=== PATIENT | female | born 2000 | race Two or more races ===

== ENCOUNTER 2024-11-04 10:38 | Outpatient (AMB) | payer OTHER, SELFPAY ==
--- NOTE | 2024-11-04 10:45 | A.OFFVIS_ITS ---
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 She is accompanied by her , Darin. The couple relocated from [place] in 07/28/2024 to [place]. He has a job here. She graduated with a PhD and [employer]. The patient is originally from [place], and her family resides there. The patient says she has a chronic history of anxiety with depression. She was briefly hospitalized for this in 2021 or 2022. She was not on medications prior to hospitalization. She was on sertraline and bupropion until moving from [place]. She had improvement on the medications, but she still had anxiety and depression symptoms. Patient says her psychiatrist, Diana Clark at [facility], had titrated the dose up to 200 mg of sertraline, and she was taking 150 mg of bupropion. She did not have side effects on the medications. She would like to restart medication because she feels more depressed off of the medication. She has anxious thoughts, difficulty focusing, difficulty sleeping, she feels down and depressed and has decreased motivation and enjoyment in things she likes to do. At the time of hospitalization she had thoughts of self-harm, but she said she has not had thoughts of self-harm, thoughts of hurting others or suicide ideation since then. It makes it very difficult to get through her week with her current symptoms. She has a history of panic attacks, but they occur infrequently. The last 1 was a couple of months ago. Patient also endorses chronic sleep dysfunction which was treated with trazo done. This allowed her to fall asleep, but it worsened her daytime somnolence and drowsiness in the morning. She is no longer on the medication. She tried hydroxyzine, but it did not help at all. Her psychiatrist had recommended a sleep study before she relocated. It was not done because she moved. She has difficulty falling asleep and staying asleep. Her says it is very hard for her to wake up in the morning and it takes her longer than most people to become lucid. She rarely snores. No reported witnessed apneic spells. She takes [id number] sleep aids like melatonin and Advil sleep. She says she is likely to doze off if she is sitting in a chair watching TV during the day. Denies cataplexy. She drinks 2-3 alcoholic beverages per month. No illicit drug use. No marijuana use. She has Nexplanon, and she would like it removed. I referred her to [facility] in [place], and I asked them to contact the office to schedule an appointment. I provided them with the phone number. She endorses an intermittent burning sensation on her upper extremities and on her lower extremities. This effects the forearms in the sides of her thighs. There is no pattern to it. It lasts for a while when is present. She sees no visible rash or discoloration. She does get intermittent tingling. She denies numbness. She denies weakness in extremities. She denies known family history of autoimmune disease aside from diabetes. She has no vision changes. ROS: Constitutional: No unexplained weight loss, fever, chills or night sweats. Eyes: No vision changes, blurry vision, double vision, eye pain Respiratory: No shortness of breath, cough or sputum production. Cardiovascular: No chest pain, palpitations or pedal edema. Gastrointestinal: No anorexia, nausea, vomiting or diarrhea. No abdominal pain or blood in stool. Neurologic: No headache, dizziness, syncope, seizures, blackouts or tremors. Skin: No rash Endocrine: No cold or heat intolerance. No polyuria or polydipsia. Psychiatric: see HPI Physical exam: Constitutional: Alert, in no distress. Eyes: Pupils are equal, round and reactive to light. Extraocular muscles intact. Neck: Supple, Full range of motion. No lymphadenopathy. No palpable thyroid masses. Respiratory: Clear to auscultation. Cardiovascular: S1 S2 regular. No murmurs. Neurologic: No focal neurological deficits. Symmetric patellar reflexes. Moves all extremities spontaneously. Sensation intact bilaterally. Normal gait. Handgrip strength 5/5 bilaterally. Skin: No rashes Musculoskeletal: No gross deformities. Normal range of motion. Extremities: Warm and well perfused. No clubbing, cyanosis or edema. 3+ peripheral pulses bilaterally. Psychiatric: Cooperative. Quiet but answers questions appropriately. Appropriate eye contact. [facility] Medical History (Updated 11/04/24 @ 11:48 by JIMENA Torres) Burning sensation Sleep dysfunction with arousal disturbance Depression Anxiety High cholesterol Surgical History (Updated 11/04/24 @ 11:01 by Danilo Gatica CMA) History of liposuction of abdomen Family History (Updated 11/04/24 @ 11:03 by Danilo Gatica CMA) Father High blood pressure High cholesterol Maternal Grandfather Diabetes Physical Exam Vital Signs: Last Vital Signs Temp 97.8 F 11/04/24 11:07 Pulse 77 11/04/24 11:07 Resp 14 11/04/24 11:07 BP 100/60 11/04/24 11:07 Pulse Ox 99 11/04/24 11:07 Oxygen Delivery Method Room Air 11/04/24 11:07 BMI result Body Mass Index 29.6 Assessment & Plan Assessment & Plan (1) Depression: Code(s): F32.A - Depression, unspecified Category: Medical (2) Burning sensation: Code(s): R20.8 - Other disturbances of skin sensation Category: Medical (3) Anxiety: Code(s): F41.9 - Anxiety disorder, unspecified Category: Medical (4) Sleep dysfunction with arousal disturbance: Code(s): G47.8 - Other sleep disorders Category: Medical Plan The patient is agreeable to referrals to Psychiatry and Psychology. She would like to restart medication. She will restart bupropion XL 150 mg every morning. Side effects, black box warning and administration reviewed. We discussed that she still had persistent anxiety and depression despite high dosages on sertraline. We discussed trying a different medication. She will start fluoxetine 10 mg for 8 days and then increase to 20 mg every morning. Side effects, black box warning and administration reviewed in detail with the patient. She will contact the office if she has any difficulty with the medicine. We will schedule a close follow up. Refer to OBGYN for Nexplanon removal and annual exam. Discussed that burning sensation may be due to vitamin deficiency, anemia, thyroid disorder among other things. We will start with labs and bring her back in for a more detailed neurologic exam and consider MRI to rule out MS given the constellation of symptoms if the workup is nondiagnostic. Follow up in 2 weeks. Orders: Orders Comprehensive Met. Panel Today G47.8 - Other sleep disorders Lipid Panel Today E78.5 - Hyperlipidemia, unspecified, G47.8 - Other sleep disorders IRON PROFILE Today R20.8 - Other disturbances of skin sensation Vitamin B12 and Folate Today R20.8 - Other disturbances of skin sensation Lyme IgG/IgM w/reflex to WB Today R20.8 - Other disturbances of skin sensation Vitamin D 1,25 dihydroxy Today G47.8 - Other sleep disorders TSH reflex Free T4 Today G47.8 - Other sleep disorders Complete Blood Count no Diff Today G47.8 - Other sleep disorders Erythrocyte Sedimentation Rate Today F41.9 - Anxiety disorder, unspecified Referrals Psychiatry Outpatient Consultation Service F32.A - Depression, unspecified, F41.9 - Anxiety disorder, unspecified, G47.8 - Other sleep disorders SOLUTIONS ANALYST Referral Z30.46 - Encounter for surveillance of implantable subdermal contraceptive Psychology Referral F32.A - Depression, unspecified, F41.9 - Anxiety disorder, unspecified, G47.8 - Other sleep disorders Medications: New fluoxetine Take 1/2 tablet po qam for the first 8 days and then increase to 1 tab qam. 20 mg PO DAILY 30 tabs 0RF bupropion HCl XL 150 mg PO QAM 30 tabs 0RF Coding Level of Care Code New Pt Level 4 (18059) Complex EM visit Add On G2211 Diagnoses Depression F32.A Burning sensation R20.8 Anxiety F41.9 Sleep dysfunction with arousal disturbance G47.8
[2024-11-04 11:07] VITALS: BP 100/60; PULSE 77; RESP 14; TEMP 36.6; O2SAT 99; BMI 29.6
== END 2024-11-04 11:52 | disposition home or self-care (01) ==
PROVIDERS: PCP Physician Assistant Medical; Visit Provider Physician Assistant Medical
DX: F32.A Depression, unspecified (principal); R20.8 Other disturbances of skin sensation; F41.9 Anxiety disorder, unspecified; G47.8 Other sleep disorders

== ENCOUNTER → 2024-11-04 10:38 | Outpatient (BNVA) | payer OTHER, SELFPAY | PROVIDERS: PCP Physician Assistant Medical; Visit Provider Physician Assistant Medical | DX: F32.A Depression, unspecified (principal); F41.9 Anxiety disorder, unspecified; R20.8 Other disturbances of skin sensation; G47.8 Other sleep disorders; E78.5 Hyperlipidemia, unspecified | CPT/HCPCS: 99202 ==

== ENCOUNTER 2024-11-06 09:21 | Outpatient (REF) | payer OTHER, SELFPAY ==
[2024-11-06 11:41] LABS: Hematocrit 41.9 % (37.0-47.0); Hemoglobin 14.3 g/dl (12.0-16.0); Mean Corpuscular HGB Conc 34.1 g/dl (31.0-35.0); Mean Corpuscular Hemoglobin 30.3 pg (27.0-33.0); Mean Corpuscular Volume 88.8 fL (80.0-98.0); Mean Platelet Volume 10.7 fL (9.4-12.3); Platelet Count 252 X10*3/uL (160-400); Red Blood Count 4.72 X10*6/uL (4.20-5.50); Red Cell Distribution Width 12.4 % (11.0-16.0); White Blood Count 5.4 X10*3/uL (4.8-10.8)
[2024-11-06 11:57] LABS: Erythrocyte Sedimentation Rate 15 MM/HR (0-20)
[2024-11-06 12:31] LABS: Alanine Aminotransferase 19 U/L (0-31); Albumin Level 4.4 g/dL (3.5-5.0); Alkaline Phosphatase 66 U/L (39-117); Anion Gap 10 (12-20); Aspartate Amino Transferase 19 U/L (5-31); Bilirubin Total 0.3 mg/dL (0.0-1.0); Blood Urea Nitrogen 7 mg/dL (9-16); Calcium 9.3 mg/dL (8.4-10.2); Carbon Dioxide 25 mmol/L (22-29); Chloride 107 mmol/L (96-108); Cholesterol 222 mg/dL (<200); Estimated Glomerular Filt Rate > 60; Glucose Random 84 mg/dL (60-115); HDL Cholesterol 46 mg/dL (>40); Iron 68 mcg/dL (30-160); LDL Cholesterol Calculated 155 mg/dL (<100); Percent Iron Saturation 20 % (15-50); Potassium 3.8 mmol/L (3.3-5.1); Sodium 138 mmol/L (135-145); Total Iron Binding Capacity 347 mcg/dL (228-428); Total Protein 7.7 g/dL (6.5-8.0); Triglycerides 109 mg/dL (<150); Unsaturated Iron Binding 279 ug/dL
[2024-11-06 12:56] LABS: Folate 6.6 ng/mL (> or = 4.0); Vitamin B12 436 pg/mL (200-900)
[2024-11-07 09:44] LABS: Lyme Abs Screen <0.90 index
[2024-11-11 00:29] LABS: VITAMIN D (1,25 OH) D3 44 pg/mL; Vit D (1,25-Dihydroxy) Total 44 pg/mL (18-72); Vitamin D (1,25 OH) D2 <8 pg/mL
== END 2024-11-06 09:22 | disposition home or self-care (01) ==
LOC: HO.WFDLDS 09:21
PROVIDERS: Visit Provider Physician Assistant Medical
DX: G47.8 Other sleep disorders (principal); F41.9 Anxiety disorder, unspecified; R20.8 Other disturbances of skin sensation; E78.5 Hyperlipidemia, unspecified
CPT/HCPCS: 36415; 80053; 80061; 82607; 82652; 82746; 83540; 84443; 85027; 85652; 86617; 86618

== ENCOUNTER 2024-11-18 09:59 | Outpatient (AMB) | payer OTHER, SELFPAY ==
[2024-11-18 10:06] VITALS: BP 110/72; PULSE 80; RESP 16; O2SAT 99; BMI 29.2
--- NOTE | 2024-11-18 10:06 | MHC.PC.OV ---
Vital Signs 11/18/24 10:06 Height 5 ft 4 in Weight 170 lb BMI 29.2 BP 110/72 Blood Pressure Location Rt brachial Position Sitting Respiration 16 Pulse 80 Pulse Source Pulse Oximeter Pulse Oximetry (%) 99 Oxygen Delivery Method Room Air Intake Visit Reasons: depression and anxiety Allergies tree nut Allergy (Intermediate, Verified 11/18/24 10:09) Diarrhea Medication List - Last Reconciled 11/18/24 by JIMENA Torres bupropion HCl XL 150 mg PO QAM fluoxetine 20 mg PO DAILY semaglutide (weight loss) 0.25 mg subcut QWEEK trazodone 25 - 50 mg (0.5 - 1 x 50 mg) PO BEDTIME PRN Tobacco use date assessed: 11/18/24 Dental Screening Dental Screen Date: 11/18/24 Did you have a dental visit in the last 12 months?: Yes Did you have a dental problem in the last 6 months where you did not have access to dental care?: No Was dental information given to patient?: Patient has dentist HPI HPI Comments History of Present Illness Details This is a 24-year-old female with a past medical history of anxiety and depression presenting for follow up. The patient and her relocated from [place] in 07/28/2024 to [place]. He has a job here. She graduated with a PhD and [employer]. The patient is originally from [place], and her family resides there. We discussed multiple concerns at her initial visit. She restarted bupropion XL 150 mg q.a.m. after that visit, and she started fluoxetine 20 mg daily. This is her 2 week follow up to ensure she has no side effects. She denies side effects on the medications. She has not appreciated and improvement yet, but she knows that it may take longer on the medications. She was contacted by [facility] for counseling. Patient says they told her they would double check to make sure they take her insurance and call her back, but she has not received a call back yet. I sent a message to the coordinator to look into this. Her psychiatry referral is being processed. Her sleep study is scheduled in December. She wants to restart trazodone. She reported hydroxyzine was ineffective. She says trazodone did help her to fall asleep, but she did have worsened daytime somnolence and drowsiness in the morning with it. She tells me today that she was on 200 mg. She drinks 2-3 alcoholic beverages per month. No illicit drug use. No marijuana use. She endorsed an intermittent burning and pain sensation on her upper extremities and on her lower extremities. This effects the forearms in the sides of her thighs. There is no pattern to it. It lasts for a while when is present. She sees no visible rash or discoloration. She does get intermittent tingling. She denies numbness. She denies weakness in extremities. She denies known family history of autoimmune disease aside from diabetes. She has no vision changes. She provides additional history today. She started seeing a chiropractor and had xrays done in June 2024 of the neck and lower back. Patient reports xrays showed some curvature in spine and flattening of cervical curvature and hips not aligned. She establish care with a chiropractor in [place] recently, and she has had 2 visits, and she has a follow up tomorrow. CBC, CMP, iron profile, vitamin-D, folate, B12, TSH and Lyme satisfactory/negative. Her LDL cholesterol was elevated at 155. She has a family history of high cholesterol. She does not smoke. She does not eat a lot of red meat. She does have some full fat dairy products in her diet. ROS: Constitutional: No unexplained weight loss, fever, chills or night sweats. Eyes: No vision changes, blurry vision, double vision, eye pain Respiratory: No shortness of breath, cough or sputum production. Cardiovascular: No chest pain, palpitations or pedal edema. Gastrointestinal: No anorexia, nausea, vomiting or diarrhea. No abdominal pain or blood in stool. Neurologic: No headache, dizziness, syncope, seizures, blackouts or tremors. Skin: No rash Endocrine: No cold or heat intolerance. No polyuria or polydipsia. Psychiatric: see HPI Physical exam: Constitutional: Alert, in no distress. Eyes: Pupils are equal, round and reactive to light. Extraocular muscles intact. Neck: Supple, Full range of motion. No lymphadenopathy. No palpable thyroid masses. Respiratory: Clear to auscultation. Cardiovascular: S1 S2 regular. No murmurs. Skin: No rashes Musculoskeletal: No gross deformities. Normal range of motion. Neurologic:?Alert and oriented x 3, no focal deficits observed, CN 2-12 intact, [id number] normal, sensation equal and symmetric, strength UE and LE 5/5 bilaterally, reflexes equal and symmetric.? Normal gait.? Patient able to heel walk, toe walk and walk heel-to-toe across the floor.? No pronator drift.? Negative Romberg. Extremities: Warm and well perfused. No clubbing, cyanosis or edema. 3+ peripheral pulses bilaterally. Psychiatric: Cooperative. Appropriate eye contact. Answers questions appropriately. [facility] Medical History Daytime somnolence Burning sensation Sleep dysfunction with arousal disturbance Depression Anxiety High cholesterol Surgical History History of liposuction of abdomen Family History Father High blood pressure High cholesterol Maternal Grandfather Diabetes Social History Housing: Apartment Patient Tobacco Use Status: Never used Tobacco e-Cigarette/Vaping Use: Never Used Cognitive needs: No Hearing needs: No Vision needs: No Questionnaire PHQ-9 Over the last 2 weeks, how often have you been bothered by any of the following problems? 1. Little interest or pleasure in doing things: more than half the days 2. Feeling down, depressed, or hopeless: several days 3. Trouble falling or staying asleep, or sleeping too much: nearly every day 4. Feeling tired or having little energy: nearly every day 5. Poor appetite or overeating: several days 6. Feeling bad about yourself - or that you are a failure or have let yourself or your family down: several days 7. Trouble concentrating on things, such as reading the newspaper or watching television: several days 8. Moving or speaking so slowly that other people could have noticed. Or the opposite - being so fidgety or restless that you have been moving around a lot more than usual: several days 9. Thoughts that you would be better off or of hurting yourself in some way: not at all Total score: 13 Depression Screening Interpretation: Positive Depression Screening Done: Yes 74993 - PHQ-9 Billing: Yes Source: Developed by Drs. Reggie L. Angelina Farrell, Elvin Stanley and colleagues, with an educational rahul from [employer]. Thrive Questionnaire Date Thrive assessed: 11/04/24 I am a: Patient What is your living situation today?: I have a steady place to live Within the past 12 months, did the food you bought not last and you didn't have the money to get more?: Sometimes True Within the past 12 months, did you worry whether your food would run out before you got money to buy more?: Sometimes True Do you have trouble paying for medicines?: No Do you have trouble getting transportation to medical appointments?: No Do you have trouble paying your heating and electricity bill?: No Do you have trouble taking care of your child, family member or friend?: No Do you have trouble with day-to-day activities such as bathing, preparing meals, shopping, managing finances, etc.?: No Are you currently unemployed and looking for a job?: No Are you interested in more education?: Yes Please select the resources that you would like help with: None Currently or been in a relationship where the following occur: No concerns reported THRIVE Score: 2 AUDIT C Alcohol Use Questionnaire (AUDIT-C) 1. How often do you have a drink containing alcohol?: Monthly or less 2. How many drinks containing alcohol do you have on a typical day when you are drinking?: 1 or 2 3. How often do you have six or more drinks on one occasion?: Never Total Score: 1 Score Reviewed/Action Taken: Yes DANYELL-7 AMB Questionnaire DANYELL-7 Date DANYELL - 7 assessed: 11/18/24 Feeling nervous, anxious, or on edge: 2 = More than half the days Not being able to stop or control worryin = Several days Worrying too much about different things: 1 = Several days Trouble relaxin = More than half the days Being so restless that it is hard to sit still: 2 = More than half the days Becoming easily annoyed or irritable: 2 = More than half the days Feeling afraid as if something awful might happen: 1 = Several days Total DANYELL-7 score (0-4 normal; 5-9 mild; 10-14 moderate; 15-21 severe): 11 Source: Developed by Angelina Bowser Kurt Kroenke and colleagues, with an educational rahul from [employer]. DANYELL-7 Assessment Billing DANYELL-7 Assessment Tool: DANYELL-7 Assessment 57074 Physical exam (Primary Care) Vital Signs: Last Vital Signs Pulse 80 11/18/24 10:06 Resp 16 11/18/24 10:06 BP 110/72 11/18/24 10:06 Pulse Ox 99 11/18/24 10:06 Oxygen Delivery Method Room Air 11/18/24 10:06 BMI result Body Mass Index 29.2 Depression Screening Interpretation: Positive Thrive Assessment: Date of Thrive Assessment Date Thrive assessed 11/04/24 11/18/24 10:00 Currently or been in a relationship where the following occur: No concerns reported Coding Level of Care Code Est Pt Level 4 (23360) Complex EM visit Add On G2211 Diagnoses Depression F32.A Burning sensation R20.8 Anxiety F41.9 Sleep dysfunction with arousal disturbance G47.8 High cholesterol E78.00 Additional Codes PHQ-9 - 73600 - PHQ-9 Billing: Yes ([id number]) DANYELL-7 Assessment Billing - DANYELL-7 Assessment Tool: DANYELL-7 Assessment 19245 ([id number]) Assessment & Plan Assessment & Plan (1) Depression: Code(s): F32.A - Depression, unspecified Category: Medical (2) Burning sensation: Code(s): R20.8 - Other disturbances of skin sensation Category: Medical (3) Anxiety: Code(s): F41.9 - Anxiety disorder, unspecified Category: Medical (4) Sleep dysfunction with arousal disturbance: Code(s): G47.8 - Other sleep disorders Category: Medical (5) High cholesterol: Code(s): E78.00 - Pure hypercholesterolemia, unspecified Category: Medical Plan: It is most appropriate to implement a trial of lifestyle modifications at this time. We reviewed the risk of elevated cholesterol including increased risks of cardiovascular disease. We can monitor this in 6-12 months. Recommended Mediterranean diet, 30 minutes of cardiovascular exercise 5 days per week. Avoid tobacco products and excessive alcohol use. Plan Psychiatry and psychology referrals processing. Continue bupropion XL 150 mg every morning. Continue fluoxetine 20 mg daily. No current side effects on regimen. We discussed it may take 4-6 weeks to feel full effects of medication. Re-evaluate in 4 weeks' time. Reviewed black box warning, side effects and administration again with the patient. Her sleep study is scheduled in December. Sleep hygiene reviewed. She would like to retry trazodone, but we will prescribe it at a lower dosage since at reported higher dosages she had increase in daytime somnolence and warning drowsiness. Advised patient to take this an hour before intended sleep and not to drive or operate heavy machinery or combine with alcohol. Advised to make sure she has a least 8-10 hours to sleep after taking the medication. Do not drive or operate heavy machinery the following day if you feel drowsy. The patient's extremity symptoms may be due to the findings on her x-rays. She is seeing a chiropractor now. We discussed re-evaluating in 4 weeks. If symptoms persist discussed referral to Neurology and MRIs. Follow up in 4 weeks. Medications: New trazodone 25 - 50 mg (0.5 - 1 x 50 mg) PO BEDTIME PRN 90 tabs 0RF sleep
== END 2024-11-18 10:35 | disposition home or self-care (01) ==
PROVIDERS: PCP Physician Assistant Medical; Visit Provider Physician Assistant Medical
DX: F32.A Depression, unspecified (principal); R20.8 Other disturbances of skin sensation; F41.9 Anxiety disorder, unspecified; G47.8 Other sleep disorders; E78.00 Pure hypercholesterolemia, unspecified

== ENCOUNTER → 2024-11-18 09:59 | Outpatient (BNVA) | payer OTHER, SELFPAY | PROVIDERS: PCP Physician Assistant Medical; Visit Provider Physician Assistant Medical | DX: F32.A Depression, unspecified (principal); R20.8 Other disturbances of skin sensation; F41.9 Anxiety disorder, unspecified; G47.8 Other sleep disorders; E78.00 Pure hypercholesterolemia, unspecified; Z79.899 Other long term (current) drug therapy | CPT/HCPCS: 96127; 99212 ==

== ENCOUNTER 2024-12-23 09:00 | Outpatient (AMB) | payer OTHER, SELFPAY ==
--- NOTE | 2024-12-23 09:11 | A.OFFPC_ITS ---
Vital Signs 12/23/24 09:14 Height 5 ft 4 in Weight 161 lb BMI 27.6 BP 106/58 L Blood Pressure Location Lt brachial Position Sitting Respiration 12 Pulse 80 Pulse Source Pulse Oximeter Pulse Oximetry (%) 97 Oxygen Delivery Method Room Air Intake Visit Reasons: med check Intake Note: Medication follow up. 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 The patient and her relocated from [place] in 07/28/2024 to [place]. He has a job here. She graduated with a PhD and [employer]. The patient is originally from [place], and her family resides there. She is taking an extended trip there. She leaves early January. We discussed multiple concerns at her initial visit. She restarted bupropion XL 150 mg q.a.m. after that visit, and she started fluoxetine 20 mg daily. She denies side effects on the medication. She feels like they are helping. She says that her mood feels more stable. When something difficult or stressful happened she is able to tolerate it. She walks as a coping strategy or takes a nap. She was contacted by [facility] for counseling. Patient says they need a another referral sent to them in order to book an appointment due to an insurance issue. I printed a referral for her today, and placed a new 1 in the EMR. She is on the wait list for Psychiatry. Her sleep study is scheduled this month. She is currently taking trazodone 50 mg at night. She sleeps about 8 hours if she takes this dose. Despite this she still has daytime somnolence and fatigue. Hydroxyzine was ineffective. She drinks 2-3 alcoholic beverages per month. No illicit drug use. No marijuana use. Patient reports the burning pains in her extremities is better. She reported having x-rays done in June 2024 of the neck and lower back. Patient reports xrays showed some curvature in spine and flattening of cervical curvature and hips not aligned. She attributes the improvement in her symptoms to seeing the chiropractor. She was going every week, but now she can go every 2 weeks. CBC, CMP, iron profile, vitamin-D, folate, B12, TSH and Lyme done previously. ROS: Constitutional: No unexplained weight loss, fever, chills or night sweats. Eyes: No vision changes, blurry vision, double vision, eye pain Respiratory: No shortness of breath, cough or sputum production. Cardiovascular: No chest pain, palpitations or pedal edema. Gastrointestinal: No anorexia, nausea, vomiting or diarrhea. No abdominal pain Neurologic: No headache, weakness, dizziness, syncope, seizures, blackouts or tremors. Skin: No rash Endocrine: No cold or heat intolerance. No polyuria or polydipsia. Psychiatric: Denies SI/HI. Physical exam: Constitutional: Alert, in no distress. Neck: Supple, Full range of motion. No lymphadenopathy. No palpable thyroid masses. Respiratory: Clear to auscultation. Cardiovascular: S1 S2 regular. No murmurs. Extremities: Warm and well perfused. No clubbing, cyanosis or edema. 3+ peripheral pulses bilaterally. Psychiatric: Cooperative. Appropriate eye contact. Answers questions appropriately. [facility] Medical History Daytime somnolence Burning sensation Sleep dysfunction with arousal disturbance Depression Anxiety High cholesterol Surgical History History of liposuction of abdomen Family History Father High blood pressure High cholesterol Maternal Grandfather Diabetes Social History Housing: Apartment Alcohol intake: current Patient Tobacco Use Status: Never used Tobacco e-Cigarette/Vaping Use: Never Used service: No Current occupational status: employed Current occupation: Works from home Current occupational exposures/hazards: No Cognitive needs: No Hearing needs: No Vision needs: No Questionnaire Thrive Questionnaire Date Thrive assessed: 11/04/24 I am a: Patient What is your living situation today?: I have a steady place to live Within the past 12 months, did the food you bought not last and you didn't have the money to get more?: Sometimes True Within the past 12 months, did you worry whether your food would run out before you got money to buy more?: Sometimes True Do you have trouble paying for medicines?: No Do you have trouble getting transportation to medical appointments?: No Do you have trouble paying your heating and electricity bill?: No Do you have trouble taking care of your child, family member or friend?: No Do you have trouble with day-to-day activities such as bathing, preparing meals, shopping, managing finances, etc.?: No Are you currently unemployed and looking for a job?: No Are you interested in more education?: Yes Please select the resources that you would like help with: None Currently or been in a relationship where the following occur: No concerns reported THRIVE Score: 2 DANYELL-7 AMB Questionnaire DANYELL-7 Date DANYELL - 7 assessed: 11/18/24 Source: Developed by Drs. Reggie Farrell, Angelina Stevenson, Elvin Stanley and colleagues, with an educational rahul from [employer]. Physical exam (Primary Care) Tobacco/Smoking Status: Tobacco use Status Tobacco use date assessed 11/18/24 11/18/24 10:14 Patient Tobacco Use Status Never used Tobacco 11/18/24 10:14 e-Cigarette/Vaping Use Never Used 11/18/24 10:14 Thrive Assessment: Date of Thrive Assessment Date Thrive assessed 11/04/24 11/18/24 10:14 Currently or been in a relationship where the following occur: No concerns reported Coding Level of Care Code Est Pt Level 4 (73275) Complex EM visit Add On G2211 Diagnoses Moderate episode of recurrent major depressive disorder F33.1 Depression Type: major depressive disorder Major depression recurrence: recurrent Active/Remission status: currently active Major depression episode severity: moderate Burning sensation R20.8 Anxiety F41.9 Sleep dysfunction with arousal disturbance G47.8 Assessment & Plan Assessment & Plan (1) Depression: Code(s): F32.A - Depression, unspecified Category: Medical Qualifiers: Depression Type: major depressive disorder Major depression recurrence: recurrent Active/Remission status: currently active Major depression episode severity: moderate Qualified Code(s): F33.1 - Major depressive disorder, recurrent, moderate (2) Burning sensation: Code(s): R20.8 - Other disturbances of skin sensation Category: Medical (3) Anxiety: Code(s): F41.9 - Anxiety disorder, unspecified Category: Medical (4) Sleep dysfunction with arousal disturbance: Code(s): G47.8 - Other sleep disorders Category: Medical Plan Psychiatry and psychology referrals processing. Continue bupropion XL 150 mg every morning. Continue fluoxetine 20 mg daily. No current side effects on regimen. Reviewed black box warning and side effects with the patient. Her sleep study is scheduled in December. Sleep hygiene reviewed. Continue trazodone 50 mg nightly which is helping. She reports improvement in chronic pain since seeing the chiropractor. Not interested in further evaluation referrals at this time. The patient's extremity symptoms may be due to the findings on her x-rays. Monitor. She is returning in March or April from [place], and she will have a physical exam scheduled for April. Orders: Referrals Psychology Referral F32.A - Depression, unspecified, F41.9 - Anxiety disorder, unspecified, G47.8 - Other sleep disorders Medications: Changed From fluoxetine TAKE 1/2 TABLET BY MOUTH EVERY MORNING FOR THE FIRST 8 DAYS AND THEN INCREASE TO 1 TAB EVERY MORNING 90 tabs 1RF To fluoxetine Take 1 TAB PO EVERY MORNING 90 tabs 1RF From trazodone 25 - 50 mg (0.5 - 1 x 50 mg) PO BEDTIME PRN 90 tabs 0RF sleep To trazodone 50 mg PO BEDTIME PRN 90 tabs 1RF sleep Refilled bupropion HCl XL 150 mg PO QAM 90 tabs 0RF
[2024-12-23 09:14] VITALS: BP 106/58; PULSE 80; RESP 12; O2SAT 97; BMI 27.6
== END 2024-12-23 09:34 | disposition home or self-care (01) ==
LOC: HO.HMCFM 09:01
PROVIDERS: PCP Physician Assistant Medical; Visit Provider Physician Assistant Medical
DX: F33.1 Major depressive disorder, recurrent, moderate (principal); R20.8 Other disturbances of skin sensation; F41.9 Anxiety disorder, unspecified; G47.8 Other sleep disorders

== ENCOUNTER → 2024-12-23 09:00 | Outpatient (BNVA) | payer OTHER, SELFPAY | PROVIDERS: PCP Physician Assistant Medical; Visit Provider Physician Assistant Medical | DX: F33.1 Major depressive disorder, recurrent, moderate (principal); R20.8 Other disturbances of skin sensation; F41.9 Anxiety disorder, unspecified; G47.8 Other sleep disorders; Z79.899 Other long term (current) drug therapy | CPT/HCPCS: 99212 ==

== ENCOUNTER 2025-03-26 01:45 | Emergency (ER) | payer OTHER, SELFPAY ==
[2025-03-26 01:48] VITALS: BP 138/81; PULSE 76; RESP 16; TEMP 36.7; O2SAT 98; BMI 26.6
[2025-03-26] MEDS: Ondansetron ODT 4 MG TAB.RAPDIS TRANSLINGU (01:57)
[2025-03-26 02:13] LABS: MANUAL DIFF FLAG NO
[2025-03-26 02:14] LABS: Basophils Percent Auto 0.4 % (0-2); Eosinophils Absolute Auto 0.1 X10*3/uL (0.0-0.4); Eosinophils Percent Auto 0.7 % (0-4); Hematocrit 41.3 % (37.0-47.0); Hemoglobin 14.5 g/dl (12.0-16.0); Imm Gran Abs Auto 0.05 X10*3/uL (0.00-0.03); Imm Gran Pct Auto 0.5 % (0.0-0.4); Lymphocytes Absolute Auto 1.7 X10*3/uL (1.2-4.9); Lymphocytes Percent Auto 16.8 % (20-40); Mean Corpuscular HGB Conc 35.1 g/dl (31.0-35.0); Mean Corpuscular Hemoglobin 30.4 pg (27.0-33.0); Mean Corpuscular Volume 86.6 fL (80.0-98.0); Mean Platelet Volume 9.6 fL (9.4-12.3); Monocytes Absolute Auto 0.5 X10*3/uL (0.1-1.2); Monocytes Percent Auto 5.2 % (2-11); Neutrophils Absolute Auto 7.6 x10*3/uL (2.0-8.3); Neutrophils Percent Auto 76.4 % (45-73); Platelet Count 385 X10*3/uL (160-400); Red Blood Count 4.77 X10*6/uL (4.20-5.50); Red Cell Distribution Width 12.3 % (11.0-16.0)
[2025-03-26 02:15] LABS: Appearance Urine Clear; Color Urine Dark Yellow; Glucose Urine UA Negative (Negative); Leukocyte Esterase Urine Small (1+) (Negative); Nitrite Urine Negative (Negative); PH 7.5 (5.0-9.0); Specific Gravity - Urine >= 1.030 (1.005-1.025); UMIC TRIGGER UACC YES; Urine Blood Moderate (2+) (Negative); Urine Ketones 40 mg/dL (Negative); Urine Protein 30 (1+) mg/dL (Neg-Trace)
[2025-03-26 02:26] LABS: IDNOW Serial# 55D5AD1C; Strep A Nucleic Acid Negative (Negative)
[2025-03-26 02:30] LABS: Alanine Aminotransferase 26 U/L (0-31); Albumin Level 4.5 g/dL (3.5-5.0); Alkaline Phosphatase 91 U/L (39-117); Anion Gap 15 (12-20); Aspartate Amino Transferase 23 U/L (5-31); Bilirubin Total 0.4 mg/dL (0.0-1.0); Blood Urea Nitrogen 11 mg/dL (9-16); Carbon Dioxide 23 mmol/L (22-29); Chloride 109 mmol/L (96-108); Creatinine Clr Calc Pharmacy 128.1; Estimated Glomerular Filt Rate > 60; Glucose Random 91 mg/dL (60-115); Lipase 38 U/L (8-78); Magnesium 2.1 mg/dL (1.6-2.6); Potassium 3.8 mmol/L (3.3-5.1); Sodium 143 mmol/L (135-145); Total Protein 7.9 g/dL (6.5-8.0)
[2025-03-26 02:38] VITALS: BP 118/86; PULSE 77; RESP 16; TEMP 36.9; O2SAT 98
[2025-03-26 02:46] LABS: Bacteria Urine None Seen (None Seen); Hyaline Casts Urine 0-2 /LPF (0-2); RBC Urine >20 /HPF (0-2); UACC Culture Trigger YES; WBC Urine 0-5 /HPF (0-5)
[2025-03-26 02:55] LABS: Influenza A PCR NEGATIVE (Negative); Influenza B PCR NEGATIVE (Negative); Resp Syncy Virus RNA Qual PCR NEGATIVE (Negative); SARS COV2 PCR INHOUSE NEGATIVE (Negative)
[2025-03-26 06:08] LABS: UPreg QC Valid YES; Urine Pregnancy NEGATIVE (NEGATIVE)
--- NOTE | 2025-03-26 06:20 | ED_ITS ---
HPI - Nausea/Vomiting/Diarrhea General Chief complaint: Nausea/Vomiting/Diarrhea Stated complaint: vomiting Time Seen by Provider: 03/26/25 06:18 Source: patient Mode of arrival: ambulatory Limitations: no limitations History of Present Illness ED Provider: Dr. Mine Murphy HPI Narrative: Please see paper chart for down time Patient came to the emergency room complaining of nausea and vomiting, no abdominal pain, no diarrhea, no fever chills Related Data Home Medications ?Medication ?Instructions ?Recorded ?Confirmed semaglutide (weight loss) 0.25 0.25 mg subcut QWEEK 12/23/24 mg/0.5 mL subcutaneous pen injector Previous Rx's ?Medication ?Instructions ?Recorded bupropion HCl 150 mg 24 hr tablet, 150 mg PO QAM #90 t abs 12/23/24 extended release fluoxetine 20 mg tablet See Rx Instructions .Route 0 12/23/24 .COMPLEX #90 tabs trazodone 50 mg tablet 50 mg PO BEDTIME PRN sleep # 90 tabs 12/23/24 ondansetron 4 mg disintegrating 4 mg PO Q6H PRN nausea and 03/26/25 tablet vomiting #14 tabs Allergies Allergy/AdvReac Type Severity Reaction Status Date / Time tree nut Allergy Intermediate Diarrhea Verified 03/26/25 01:53 PMFSH Past Medical History Medical History Daytime somnolence Burning sensation Sleep dysfunction with arousal disturbance Depression Anxiety High cholesterol Surgical History History of liposuction of abdomen Family History Family History Father High blood pressure High cholesterol Maternal Grandfather Diabetes Social History Social History (Updated 12/23/24 @ 09:17 by Shawna Gregorio CMA) Housing: Apartment Alcohol intake: current Patient Tobacco Use Status: Never used Tobacco e-Cigarette/Vaping Use: Never Used Advance Directives: No Do you have a plan to hurt others: No Plan service: No Current occupational status: employed Current occupation: Works from home Current occupational exposures/hazards: No Cognitive needs: No Hearing needs: No Vision needs: No Physical Exam 2 Vital Signs: Vital Signs: Last Vital Signs Temp 98.4 F 03/26/25 02:38 Pulse 77 03/26/25 02:38 Resp 16 03/26/25 02:38 BP 118/86 03/26/25 02:38 Pulse Ox 98 03/26/25 02:38 O2 Del Method Room Air 03/26/25 02:38 BMI result Body Mass Index 26.6 Medications Administered Discontinued Medications Generic Name Dose Route Start Last Admin Trade Name Freq PRN Reason Stop Dose Admin Ondansetron HCl 4 mg 03/26/25 01:55 03/26/25 01:57 Ondansetron Odt 4 Mg Tab.Rapdis TRANSLINGU 03/26/25 01:56 4 mg ONCE ONE Administration Medical Decision Making Medical Decision Making MDM Narrative: Please see paper chart. No significant abnormality in patient's hematology and chemistry, urinalysis positive for blood secondary to menstruation, no UTI. HCG negative serology negative for RSV Differential Diagnosis Differential Diagnoses: The differential diagnosis associated with the presentation includes (Dehydration, gastritis, gastroenteritis) Admission/Observation Consideration of admission/observation: Escalation of care including admission/observation considered Lab Data [facility] Lab Attestation statement: I reviewed the patient's lab results. 03/26/25 02:06 03/26/25 02:06 Labs: Lab Results 03/26/25 03/26/25 03/26/25 Range/Units 02:02 02:06 02:08 WBC 10.0 (4.8-10.8) X10*3/uL RBC 4.77 (4.20-5.50) X10*6/uL Hgb 14.5 (12.0-16.0) g/dl Hct 41.3 (37.0-47.0) % MCV 86.6 (80.0-98.0) fL MCH 30.4 (27.0-33.0) pg MCHC 35.1 H (31.0-35.0) g/dl RDW 12.3 (11.0-16.0) % Plt Count 385 D (160-400) X10*3/uL MPV 9.6 (9.4-12.3) fL Immature Gran % (Auto) 0.5 H (0.0-0.4) % Neut % (Auto) 76.4 H (45-73) % Lymph % (Auto) 16.8 L (20-40) % Appling % (Auto) 5.2 (2-11) % Eos % (Auto) 0.7 (0-4) % Baso % (Auto) 0.4 (0-2) % Lymph # (Auto) 1.7 (1.2-4.9) X10*3/uL Appling # (Auto) 0.5 (0.1-1.2) X10*3/uL Eos # (Auto) 0.1 (0.0-0.4) X10*3/uL Baso # (Auto) 0.0 (0.0-0.2) X10*3/uL Abs Immat Gran (auto) 0.05 H (0.00-0.03) X10*3/uL Absolute Neuts (auto) 7.6 (2.0-8.3) x10*3/uL Absolute Nucleated RBC 0.000 (0.0-0.012) X10*3/uL Nucleated RBC % (auto) 0.0 (0.0-0.2) /100WBC Sodium 143 (135-145) mmol/L Potassium 3.8 (3.3-5.1) mmol/L Chloride 109 H (96-108) mmol/L Carbon Dioxide 23 (22-29) mmol/L Anion Gap 15 (12-20) BUN 11 (9-16) mg/dL Creatinine 0.64 (0.5-1.4) mg/dL Estim Creat Clear Calc 128.1 Estimated GFR > 60 Random Glucose 91 (60-115) mg/dL Calcium 10.0 D (8.4-10.2) mg/dL Magnesium 2.1 (1.6-2.6) mg/dL Total Bilirubin 0.4 (0.0-1.0) mg/dL AST 23 (5-31) U/L ALT 26 (0-31) U/L Alkaline Phosphatase 91 (39-117) U/L Total Protein 7.9 (6.5-8.0) g/dL Albumin 4.5 (3.5-5.0) g/dL Lipase 38 (8-78) U/L Urine Color Dark Yellow Urine Appearance Clear Urine pH 7.5 (5.0-9.0) Ur Specific Opal >= 1.030 H (1.005-1.025) Urine Protein 30 (1+) H (Neg-Trace) mg/dL Urine Glucose (UA) Negative (Negative) mg/dL Urine Ketones 40 (Negative) mg/dL Urine Blood Moderate (2+) H (Negative) Urine Nitrite Negative (Negative) Ur Leukocyte Esterase Small (1+) H (Negative) Urine RBC >20 H (0-2) /HPF Urine WBC 0-5 (0-5) /HPF Ur Squamous Epith Cells 3-5 (0-2) /HPF Urine Bacteria None Seen (None Seen) Hyaline Casts 0-2 (0-2) /LPF Urine Test NEGATIVE (NEGATIVE) Influenza Type A (PCR) NEGATIVE (Negative) Influenza Type B (PCR) NEGATIVE (Negative) RSV RNA Qual (PCR) NEGATIVE (Negative) SARS-CoV-2 RNA (RT-PCR) NEGATIVE (Negative) S. pyogenes GrpA HAILEE Negative (Negative) Discharge Plan Discharge Clinical Impression: Nausea & vomiting Patient Disposition: Home, Self-Care Instructions: Acute Nausea and Vomiting (ED) Additional Instructions: Please follow-up with your primary care physician tomorrow. If you have any worsening or new symptoms, please return to the emergency room or call 911 Prescriptions: New ondansetron 4 mg tablet,disintegrating 4 mg PO Q6H PRN (Reason: nausea and vomiting) Qty: 14 0RF No Action semaglutide (weight loss) 0.25 mg/0.5 mL pen injector 0.25 mg subcut QWEEK Rx Instructions: administer weeks 1 through 4 of therapy trazodone 50 mg tablet 50 mg PO BEDTIME PRN (Reason: sleep) Qty: 90 1RF bupropion HCl 150 mg tablet extended release 24 hr 150 mg PO QAM Qty: 90 0RF fluoxetine 20 mg tablet See Rx Instructions .ROUTE .COMPLEX Qty: 90 1RF Rx Instructions: Take 1 TAB PO EVERY MORNING Stand Alone Forms: Work/School Release Print Language: Chinese
[2025-03-26 06:22] VITALS: BP 111/69; PULSE 78; RESP 20; TEMP 36.6; O2SAT 99
[2025-03-26 06:36] VITALS: BP 111/69; PULSE 78; RESP 20; TEMP 36.6; O2SAT 99
== END 2025-03-26 06:36 | disposition home or self-care (01) ==
PROVIDERS: Emergency Provider Emergency Medicine; PCP Physician Assistant Medical
DX: R11.2 Nausea with vomiting, unspecified (principal); E78.00 Pure hypercholesterolemia, unspecified; Z03.818 Encounter for observation for suspected exposure to other biological agents ruled out; Z79.899 Other long term (current) drug therapy
CPT/HCPCS: 0241U; 80053; 81001; 81025; 83690; 83735; 85025; 87086; 87651; 99283

== ENCOUNTER → 2025-04-02 10:55 | Outpatient (REF) | payer OTHER, SELFPAY | LOC: HO.SL 10:55 | PROVIDERS: PCP Physician Assistant Medical; Visit Provider Physician Assistant Medical | DX: R40.0 Somnolence (principal); G47.8 Other sleep disorders; R06.83 Snoring | CPT/HCPCS: 95806 ==

== ENCOUNTER → 2025-04-02 11:05 | Outpatient (BNV) | payer OTHER, SELFPAY | PROVIDERS: PCP Physician Assistant Medical; Visit Provider Psychiatry & Neurology Neurology | DX: R40.0 Somnolence (principal) | CPT/HCPCS: 95806 ==

== ENCOUNTER 2025-04-03 14:44 | Outpatient (AMB) | payer OTHER, SELFPAY ==
--- NOTE | 2025-04-03 14:53 | A.OFFPC_ITS ---
Vital Signs 04/03/25 14:57 Height 5 ft 4 in Weight 155 lb BMI 26.6 BP 110/74 Blood Pressure Location Lt brachial Position Sitting Pulse 77 Pulse Source Pulse Oximeter Temp 98.6 F Temp Source Temporal Artery Scan Pulse Oximetry (%) 97 Oxygen Delivery Method Room Air Intake Visit Reasons: migraine/referral Intake Note: Sonia presents in the office today for migraines and a referral. Allergies tree nut Allergy (Intermediate, Verified 04/03/25 14:55) Diarrhea Tobacco use date assessed: 04/03/25 Dental Screening Dental Screen Date: 04/03/25 Did you have a dental visit in the last 12 months?: No Did you have a dental problem in the last 6 months where you did not have access to dental care?: No Was dental information given to patient?: Patient has dentist HPI HPI Comments History of Present Illness Details This is a 25-year-old female with a past medical history of anxiety and depression presenting to discuss headaches. The patient endorses a history of migraine headaches for years. She traveled to [place] to visit family for a couple of months, and she has had an increase in frequency and severity of headaches. She went to the ER once while in [place] and was treated with IV medications and fluids. Denies neuroimaging. They recommended consult with Neurology. She returned from [place] 2 weeks ago. Last week she was sick and got dehydrated and had another migraine. This week she has not had a headache. She describes them as bilateral frontal headaches or sometimes unilateral frontal headaches associated with nausea, occasional vomiting, sensitivity to light but mostly sensitivity to sound. She had 1 occasion where she had difficulty getting her words out during a migraine headache, but she isn't sure if it was because the pain was so severe. She denies numbness or tingling or weakness in her extremities associated with headaches. Her mother also gets migraines. She treats headaches with ibuprofen, Tylenol and peppermint essential oil which helps. She uses ondansetron for nausea. She was given ketorolac at the emergency room and [place]. Treatment works best when she is able to catch it early. She denies vision changes. ROS: Constitutional: No unexplained weight loss, fever, chills or night sweats. +chronic fatigue (previously evaluated) Eyes: No vision changes, blurry vision, double vision, eye pain, eye redness, eye discharge. ENT: No hearing loss, sinus pain, sore throat. +seasonal allergies Respiratory: No shortness of breath, cough or sputum production. Cardiovascular: No chest pain Gastrointestinal: No abdominal pain or blood in stools. Neurologic: No syncope, unilateral weakness, ataxia, numbness or tingling in the extremities or face. Musculoskeletal: Denies neck pain Hematologic/Lymphatics: No bleeding or bruising. No painful lymph nodes. Skin: No rash Physical exam: Constitutional: Alert, in no distress. Head: Normocephalic. Eyes: Pupils are equal, round and reactive to light. Extraocular muscles intact. Ear, Nose and Throat: Canals clear. TMs normal. Normal nasal mucosa. No nasal discharge. No oral lesions. Neck: Supple, Full range of motion. No lymphadenopathy. No palpable thyroid masses. Respiratory: Clear to auscultation. Cardiovascular: S1 S2 regular. No murmurs. Neurologic:?Alert and oriented x 3, no focal deficits observed, CN 2-12 intact, [id number]-pfdrst normal, sensation equal and symmetric, strength UE and LE 5/5 bilaterally, reflexes equal and symmetric.? Normal gait.? Patient able to heel walk, toe walk and walk heel-to-toe across the floor.? No pronator drift.? Negative Romberg. Musculoskeletal: Nontender cervical spine. Extremities: Warm and well perfused. No clubbing, cyanosis or edema. 3 Psychiatric: Normal mood and affect [facility] Medical History (Updated 04/03/25 @ 15:24 by JIMENA Torres) Migraine headache Worsening headaches Daytime somnolence Burning sensation Sleep dysfunction with arousal disturbance Depression Anxiety High cholesterol Surgical History History of liposuction of abdomen Family History Father High blood pressure High cholesterol Maternal Grandfather Diabetes Social History (Updated 04/03/25 @ 14:57 by Liat Hummel MA) Housing: Apartment Alcohol intake: current Patient Tobacco Use Status: Never used Tobacco e-Cigarette/Vaping Use: Never Used Second Hand Smoke Exposure: No service: No Current occupational status: employed Current occupation: Works from home Current occupational exposures/hazards: No Cognitive needs: No Hearing needs: No Vision needs: No Questionnaire Thrive Questionnaire Date Thrive assessed: 11/04/24 I am a: Patient What is your living situation today?: I have a steady place to live Within the past 12 months, did the food you bought not last and you didn't have the money to get more?: Sometimes True Within the past 12 months, did you worry whether your food would run out before you got money to buy more?: Sometimes True Do you have trouble paying for medicines?: No Do you have trouble getting transportation to medical appointments?: No Do you have trouble paying your heating and electricity bill?: No Do you have trouble taking care of your child, family member or friend?: No Do you have trouble with day-to-day activities such as bathing, preparing meals, shopping, managing finances, etc.?: No Are you currently unemployed and looking for a job?: No Are you interested in more education?: Yes Please select the resources that you would like help with: None Currently or been in a relationship where the following occur: No concerns reported THRIVE Score: 2 DANYELL-7 AMB Questionnaire DANYELL-7 Date DANYELL - 7 assessed: 11/18/24 Source: Developed by Drs. Reggie Farrell, Angelina Stevenson, Elvin Satnley and colleagues, with an educational rahul from [employer]. Physical exam (Primary Care) Vital Signs: Last Vital Signs Temp 98.6 F 04/03/25 14:57 Pulse 77 04/03/25 14:57 BP 110/74 04/03/25 14:57 Pulse Ox 97 04/03/25 14:57 Oxygen Delivery Method Room Air 04/03/25 14:57 BMI result Body Mass Index 26.6 Tobacco/Smoking Status: Tobacco use Status Tobacco use date assessed 04/03/25 04/03/25 15:01 Patient Tobacco Use Status Never used Tobacco 04/03/25 15:01 e-Cigarette/Vaping Use Never Used 04/03/25 15:01 Thrive Assessment: Date of Thrive Assessment Date Thrive assessed 11/04/24 04/03/25 15:01 Currently or been in a relationship where the following occur: No concerns reported Coding Level of Care Code Est Pt Level 4 (61303) Complex EM visit Add On G2211 Diagnoses Migraine headache G43.909 Worsening headaches R51.9 Assessment & Plan Assessment & Plan (1) Migraine headache: Code(s): G43.909 - Migraine, unspecified, not intractable, without status migrainosus Category: Medical (2) Worsening headaches: Code(s): R51.9 - Headache, unspecified Category: Medical Plan Typically for improvement of migraine headache or headache it takes a multifactorial approach including modifying risk factors and avoiding triggers. Trial of Imitrex as needed. limiting use to 9-12 tabs per month to avoid any rebound that can occur from over using this medication. Side effects reviewed. Do not drive or operate heavy machinery if the medication causes drowsiness or dizziness. Patient should avoid all opiates or barbiturate pain medications for the treatment of chronic or even acute exacerbation of headache due to there high propensity to cause rebound effect, tolerance, habituation, and medication overuse headaches. I would limit the use of glzb-fks-morewid headache medications to no more than 4 to 5 doses per week in any combination to avoid rebound effect. I continued to endorse proper sleep habit, hydration with water, not skipping meals, decreasing caffeine, working on stressors, increasing physical activity and exercise and weight loss as appropriate. All these things over time can help decrease headache burden and frequency. Anxiety and depression is treated however she was not able to connect with a therapist yet. I sent a message to [facility] regarding this. Given worsening frequency and severity of headaches ordered MRI of the brain. Referred to neurology. Warning signs warranting ER evaluation reviewed with the patient. Follow up in 6 weeks. Orders: Orders MR head/brain wo con 04/03/25 R51.9 - Headache, unspecified Referrals Neurology Referral G43.909 - Migraine, unspecified, not intractable, without status migrainosus Medications: New sumatriptan succinate (Imitrex) take 1 tab at onset of headache; if no relief may repeat 1 tab after at least 2 hrs; max = 4 tabs/24 hr PO 12 tabs 5RF
[2025-04-03 14:57] VITALS: BP 110/74; PULSE 77; TEMP 37; O2SAT 97; BMI 26.6
== END 2025-04-03 15:32 | disposition home or self-care (01) ==
LOC: HO.HMCFM 14:45
PROVIDERS: PCP Physician Assistant Medical; Visit Provider Physician Assistant Medical
DX: G43.909 Migraine, unspecified, not intractable, without status migrainosus (principal); R51.9 Headache, unspecified

== ENCOUNTER → 2025-04-03 14:44 | Outpatient (BNVA) | payer OTHER, SELFPAY | PROVIDERS: PCP Physician Assistant Medical; Visit Provider Physician Assistant Medical | DX: G43.909 Migraine, unspecified, not intractable, without status migrainosus (principal) | CPT/HCPCS: 99212 ==

== ENCOUNTER 2025-04-20 09:14 | Outpatient (REF) | payer OTHER, SELFPAY ==
--- NOTE | ~2025-04-20 | MR_ITS ---
EXAMINATION: MR BRAIN WITHOUT IV CONTRAST HISTORY: R51.9 - Headache, unspecified TECHNIQUE: Sagittal T1, and axial T1, FLAIR, T2, gradient echo, and diffusion weighted MR images of the brain were obtained. COMPARISON: There are no prior studies available for comparison. FINDINGS: The brain parenchyma is unremarkable, demonstrating normal fox/white differentiation. No foci of abnormal signal intensity are identified. The ventricular system is normal in size and configuration. The pituitary is normal in size. The cerebellar tonsils are normally located. There is no mass effect or midline shift. No intra or extra-axial fluid collections are identified. There are no foci of restricted diffusion. Normal vascular flow voids are noted in the basilar and carotid arteries. The visualized paranasal sinuses are clear. MR/MR head/brain wo con IMPRESSION: Unremarkable MRI of the brain without contrast. Electronically signed by: Reggie Hargrove MD 04/21/2025 08:28 AM EDT
== END 2025-04-20 09:15 | disposition home or self-care (01) ==
LOC: HO.MRI 09:14
PROVIDERS: PCP Physician Assistant Medical; Visit Provider Physician Assistant Medical
DX: R51.9 Headache, unspecified (principal)
CPT/HCPCS: 70551

== ENCOUNTER → 2025-04-20 09:20 | Outpatient (BNV) | payer OTHER, SELFPAY | PROVIDERS: PCP Physician Assistant Medical; Visit Provider Radiology Diagnostic Radiology | DX: G44.52 New daily persistent headache (NDPH) (principal) | CPT/HCPCS: 70551 ==

== ENCOUNTER 2025-05-01 08:34 | Outpatient (AMB) | payer OTHER, SELFPAY ==
--- NOTE | 2025-05-01 08:38 | A.OFFPC_ITS ---
Vital Signs 05/01/25 08:41 Height 5 ft 4 in Weight 155 lb BMI 26.6 BP 100/60 Blood Pressure Location Rt brachial Position Sitting Pulse 81 Pulse Source Pulse Oximeter Temp 97.8 F Temp Source Temporal Artery Scan Pulse Oximetry (%) 98 Oxygen Delivery Method Room Air Intake Visit Reasons: annual physical exam Intake Note: Sonia presents in the office today for her annual physical. Allergies tree nut Allergy (Intermediate, Verified 05/01/25 08:39) Diarrhea Tobacco use date assessed: 05/01/25 Dental Screening Dental Screen Date: 05/01/25 Did you have a dental visit in the last 12 months?: No Did you have a dental problem in the last 6 months where you did not have access to dental care?: No Was dental information given to patient?: Patient has dentist HPI HPI Comments History of Present Illness Details This is a 25-year-old female with a past medical history of anxiety, depression, hyperlipidemia, migraines and insomnia presenting for a physical exam. Hyperlipidemia-she is working on lifestyle modifications. LDL was 155 in October 2024. Nonsmoker. Migraines-MRI of the brain was negative. She has a neurology appointment scheduled. She is using Imitrex which has been very effective. She uses Zofran as needed for nausea associated with headaches. She uses it once a week or less. Depression with anxiety, sleep dysfunction-currently on fluoxetine, bupropion and trazodone. The medications are working for her. She is consistently taking them. Sleep study was negative. 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 Eye exam: She will schedule this. Dental: scheduled this Monday. Reports tdap was last administered 2021 when applying for [employer]. ROS: Constitutional: No unexplained weight loss, fever, chills or night sweats. +chronic fatigue. Eyes: No vision changes, blurry vision, double vision, eye pain, eye redness, eye discharge. ENT: No hearing loss, sneezing, congestion, runny nose or sore throat. Respiratory: No shortness of breath, cough or sputum production. Cardiovascular: No chest pain, chest pressure or chest discomfort. No palpitations or pedal edema. Gastrointestinal: No anorexia, vomiting or diarrhea. No abdominal pain or blood in stool. +nausea with migraines. Genitourinary: No dysuria, hematuria, urinary frequency. Neurologic: No dizziness, syncope, unilateral weakness, ataxia, numbness or tingling in the extremities. Musculoskeletal: No muscle pain, back pain, joint pain or swelling. Hematologic/Lymphatics: No bleeding or bruising. No painful lymph nodes. Skin: No rash or itching. Endocrine: No cold or heat intolerance. No polyuria or polydipsia. Psychiatric: No SI/HI. Physical exam: Constitutional: Alert, in no distress. Head: Normocephalic. Eyes: Pupils are equal, round and reactive to light. Extraocular muscles intact. Ear, Nose and Throat: Canals clear. TMs normal. Normal nasal mucosa. No nasal discharge. No oral lesions. Neck: Supple, Full range of motion. No lymphadenopathy. No palpable thyroid masses. Respiratory: Clear to auscultation. Cardiovascular: S1 S2 regular. No murmurs. Gastrointestinal: Abdomen soft, non-tender, non-distended. Normal bowel sounds. No palpable masses. Genitourinary: No costovertebral angle tenderness. Neurologic: No focal neurological deficits. Symmetric patellar reflexes. Moves all extremities spontaneously. Sensation intact bilaterally. Skin: No rashes Musculoskeletal: No gross deformities. Normal range of motion. Extremities: Warm and well perfused. No clubbing, cyanosis or edema. Intact peripheral pulses bilaterally. Psychiatric: Normal mood and affect [facility] Medical History (Updated 05/01/25 @ 11:09 by JIMENA Torres) Routine physical examination Migraine headache Worsening headaches Daytime somnolence Burning sensation Sleep dysfunction with arousal disturbance Depression Anxiety High cholesterol Surgical History History of liposuction of abdomen Family History (Updated 05/01/25 @ 08:54 by JIMENA Torres) Father High blood pressure High cholesterol Maternal Grandfather Diabetes Maternal Aunt Breast cancer Social History (Updated 05/01/25 @ 08:41 by Liat Hummel MA) Housing: Apartment Alcohol intake: current Patient Tobacco Use Status: Never used Tobacco e-Cigarette/Vaping Use: Never Used Second Hand Smoke Exposure: No service: No Current occupational status: employed Current occupation: Works from home Current occupational exposures/hazards: No Cognitive needs: No Hearing needs: No Vision needs: No Questionnaire Thrive Questionnaire Date Thrive assessed: 11/04/24 I am a: Patient What is your living situation today?: I have a steady place to live Within the past 12 months, did the food you bought not last and you didn't have the money to get more?: Sometimes True Within the past 12 months, did you worry whether your food would run out before you got money to buy more?: Sometimes True Do you have trouble paying for medicines?: No Do you have trouble getting transportation to medical appointments?: No Do you have trouble paying your heating and electricity bill?: No Do you have trouble taking care of your child, family member or friend?: No Do you have trouble with day-to-day activities such as bathing, preparing meals, shopping, managing finances, etc.?: No Are you currently unemployed and looking for a job?: No Are you interested in more education?: Yes Please select the resources that you would like help with: None Currently or been in a relationship where the following occur: No concerns reported THRIVE Score: 2 DANYELL-7 AMB Questionnaire DANYELL-7 Date DANYELL - 7 assessed: 11/18/24 Source: Developed by Drs. Reggie Farrell, Angelina Stevenson, Elvin Stanley and colleagues, with an educational rahul from [employer]. Physical exam (Primary Care) Vital Signs: Last Vital Signs Temp 97.8 F 05/01/25 08:41 Pulse 81 05/01/25 08:41 BP 100/60 05/01/25 08:41 Pulse Ox 98 05/01/25 08:41 Oxygen Delivery Method Room Air 05/01/25 08:41 BMI result Body Mass Index 26.6 Tobacco/Smoking Status: Tobacco use Status Tobacco use date assessed 05/01/25 05/01/25 08:44 Patient Tobacco Use Status Never used Tobacco 05/01/25 08:44 e-Cigarette/Vaping Use Never Used 05/01/25 08:44 Thrive Assessment: Date of Thrive Assessment Date Thrive assessed 11/04/24 05/01/25 08:44 Currently or been in a relationship where the following occur: No concerns reported Coding Level of Care Code Est Pt Prev Care 18-39y(03547) Diagnoses Routine physical examination Z00.00 Migraine with aura and without status migrainosus, not intractable G43.109 Migraine type: migraine (< 15 days per month) with aura Status migrainosus presence: without status migrainosus Intractability: not intractable Anxiety F41.9 Moderate episode of recurrent major depressive disorder F33.1 Depression Type: major depressive disorder Major depression recurrence: recurrent Active/Remission status: currently active Major depression episode severity: moderate High cholesterol E78.00 Sleep dysfunction with arousal disturbance G47.8 Assessment & Plan Assessment & Plan (1) Routine physical examination: Code(s): Z00.00 - Encounter for general adult medical examination without abnormal findings Category: Medical Plan: Patient is seen today for a routine physical. 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 - Blood pressure screening - Cholesterol screening - Osteoporosis prevention including calcium/vitamin D intake, weight bearing exercise & smoking cessation - Nutritional and exercise counseling - Counseling of injury prevention including fire prevention, smoke alarms and seat belt usage - Screening for depression - Prevention of and/or testing for infectious diseases - declined - Education about skin cancer - Recommendations about immunizations - Recommendation of an eye exam - Screening for substance abuse (2) Migraine headache: Code(s): G43.909 - Migraine, unspecified, not intractable, without status migrainosus Category: Medical Qualifiers: Migraine type: migraine (< 15 days per month) with aura Status migrainosus presence: without status migrainosus Intractability: not intractable Qualified Code(s): G43.109 - Migraine with aura, not intractable, without status migrainosus Plan: Reviewed the importance of hydration, nutrition and adequate sleep. Continue Imitrex as needed. She has an appointment scheduled at the headache clinic. (3) Anxiety: Code(s): F41.9 - Anxiety disorder, unspecified Category: Medical Plan: Stable. Continue current regimen. (4) Depression: Code(s): F32.A - Depression, unspecified Category: Medical Qualifiers: Depression Type: major depressive disorder Major depression recurrence: recurrent Active/Remission status: currently active Major depression episode severity: moderate Qualified Code(s): F33.1 - Major depressive disorder, recurrent, moderate Plan: Stable. Continue current regimen. (5) High cholesterol: Code(s): E78.00 - Pure hypercholesterolemia, unspecified Category: Medical Plan: Continue lifestyle modifications. Check lipid profile. (6) Sleep dysfunction with arousal disturbance: Code(s): G47.8 - Other sleep disorders Category: Medical Plan: Sleep hygiene reviewed. Continue trazodone 50 mg at bedtime as needed. Plan Follow up in 6 months Orders: Orders Lipid Panel Today E78.5 - Hyperlipidemia, unspecified Medications: Refilled ondansetron 4 mg PO Q6H PRN 60 tabs 1RF nausea and vomiting
[2025-05-01 08:41] VITALS: BP 100/60; PULSE 81; TEMP 36.6; O2SAT 98; BMI 26.6
== END 2025-05-01 09:09 | disposition home or self-care (01) ==
LOC: HO.HMCFM 08:35
PROVIDERS: PCP Physician Assistant Medical; Visit Provider Physician Assistant Medical
DX: Z00.00 Encounter for general adult medical examination without abnormal findings (principal); G43.109 Migraine with aura, not intractable, without status migrainosus; F41.9 Anxiety disorder, unspecified; F33.1 Major depressive disorder, recurrent, moderate; E78.00 Pure hypercholesterolemia, unspecified; G47.8 Other sleep disorders

== ENCOUNTER 2025-06-23 15:14 | Outpatient (AMB) | payer OTHER, SELFPAY ==
--- NOTE | 2025-06-23 15:23 | A.OFFPC_ITS ---
Vital Signs 06/23/25 15:26 Height 5 ft 4 in Weight 158 lb 8 oz BMI 27.2 BP 116/68 Blood Pressure Location Lt brachial Position Sitting Respiration 18 Pulse 84 Pulse Source Pulse Oximeter Temp 97.8 F Temp Source Temporal Artery Scan Pulse Oximetry (%) 98 Oxygen Delivery Method Room Air Intake Visit Reasons: Severe Migraines Intake Note: Sonia presents in the office today for severe migraines. Allergies tree nut Allergy (Intermediate, Verified 06/23/25 15:24) Diarrhea Medication List - Last Reconciled 06/23/25 by JIMENA Torres bupropion HCl XL 150 mg PO QAM fluoxetine Take 1 TAB PO EVERY MORNING ondansetron 4 mg PO Q6H PRN propranolol ER 60 mg PO BEDTIME semaglutide (weight loss) 0.25 mg subcut QWEEK sumatriptan 20 mg/actuation 20 mg intranasal Q2H PRN sumatriptan succinate (Imitrex) take 1 tab at onset of headache; if no relief may repeat 1 tab after at least 2 hrs; max = 4 tabs/24 hr PO trazodone 50 mg PO BEDTIME PRN Tobacco use date assessed: 06/23/25 Dental Screening Dental Screen Date: 06/23/25 Did you have a dental visit in the last 12 months?: Yes Did you have a dental problem in the last 6 months where you did not have access to dental care?: No Was dental information given to patient?: Patient has dentist HPI HPI Comments History of Present Illness Details This is a 25-year-old female with a past medical history of anxiety, depression, hyperlipidemia, migraines and insomnia presenting for mgraines. She is here with her . Migraines-MRI of the brain was negative. She has a neurology appointment scheduled in August. She is using Imitrex and Zofran ODT which helps, but she's had several migraines with nausea and vomiting and threw up imitrex. She is having about 4 migraines per month. Stress is a trigger. She clenches her jaw/grinds her teeth. Strong odors also trigger them. She woke up with a migraine this morning. It lasted about 4 hours. It was associated with nausea, vomiting, severe headache, photophobia and phonophobia. She also experiences transient numbness and tingling of her extremities with migraines. Depression with anxiety, sleep dysfunction-currently on fluoxetine, bupropion and trazodone. Sleep study was negative. She is seeing a therapist at [facility] and on a waitlist for psychiatry. Mental health continues to be a struggle. She is not able to work right now. Sonia gave permission for her to speak with me privately. He will need FMLA forms for continuous leave x 1 month. They are moving, and she is struggling with the transition. He is missing work very frequently to care for her as she struggles with her mental health and migraines and support appointments. States today he had to leave work because she was debilitated by the migraine. ROS: Constitutional: No fevers or chills. +chronic fatigue. Gastrointestinal: Nausea and vomiting with migraines Neurologic: No dizziness, syncope, unilateral weakness, ataxia Psychiatric: No SI/HI. Physical exam: Constitutional: Alert, in no distress. Neck: Supple, Full range of motion. No lymphadenopathy. No palpable thyroid masses. Respiratory: Clear to auscultation. Cardiovascular: S1 S2 regular. Psychiatric: Normal mood and affect [facility] Medical History (Updated 05/01/25 @ 11:09 by JIMENA Torres) Routine physical examination Migraine headache Worsening headaches Daytime somnolence Burning sensation Sleep dysfunction with arousal disturbance Depression Anxiety High cholesterol Surgical History History of liposuction of abdomen Family History Father High blood pressure High cholesterol Maternal Grandfather Diabetes Maternal Aunt Breast cancer Social History (Updated 06/23/25 @ 15:26 by Liat Hummel) Housing: Apartment Alcohol intake: current Patient Tobacco Use Status: Never used Tobacco e-Cigarette/Vaping Use: Never Used Second Hand Smoke Exposure: No service: No Current occupational status: employed Current occupation: Works from home Current occupational exposures/hazards: No Cognitive needs: No Hearing needs: No Vision needs: No Questionnaire Thrive Questionnaire Date Thrive assessed: 11/04/24 I am a: Patient What is your living situation today?: I have a steady place to live Within the past 12 months, did the food you bought not last and you didn't have the money to get more?: Sometimes True Within the past 12 months, did you worry whether your food would run out before you got money to buy more?: Sometimes True Do you have trouble paying for medicines?: No Do you have trouble getting transportation to medical appointments?: No Do you have trouble paying your heating and electricity bill?: No Do you have trouble taking care of your child, family member or friend?: No Do you have trouble with day-to-day activities such as bathing, preparing meals, shopping, managing finances, etc.?: No Are you currently unemployed and looking for a job?: No Are you interested in more education?: Yes Please select the resources that you would like help with: None Currently or been in a relationship where the following occur: No concerns reported THRIVE Score: 2 DANYELL-7 AMB Questionnaire DANYELL-7 Date DANYELL - 7 assessed: 11/18/24 Source: Developed by Drs. Reggie Farrell, Angelina Stevenson, Elvin Stanley and colleagues, with an educational rahul from [employer]. Physical exam (Primary Care) Vital Signs: Last Vital Signs Temp 97.8 F 06/23/25 15:26 Pulse 84 06/23/25 15:26 Resp 18 06/23/25 15:26 BP 116/68 06/23/25 15:26 Pulse Ox 98 06/23/25 15:26 Oxygen Delivery Method Room Air 06/23/25 15:26 BMI result Body Mass Index 27.2 Tobacco/Smoking Status: Tobacco use Status Tobacco use date assessed 06/23/25 06/23/25 15:29 Patient Tobacco Use Status Never used Tobacco 06/23/25 15:26 e-Cigarette/Vaping Use Never Used 06/23/25 15:26 Thrive Assessment: Date of Thrive Assessment Date Thrive assessed 11/04/24 06/23/25 15:24 Currently or been in a relationship where the following occur: No concerns reported Coding Level of Care Code Est Pt Level 4 (36539) Complex EM visit Add On G2211 Diagnoses Migraine with aura and without status migrainosus, not intractable G43.109 Migraine type: migraine (< 15 days per month) with aura Status migrainosus presence: without status migrainosus Intractability: not intractable Anxiety F41.9 Moderate episode of recurrent major depressive disorder F33.1 Depression Type: major depressive disorder Major depression recurrence: recurrent Active/Remission status: currently active Major depression episode severity: moderate Sleep dysfunction with arousal disturbance G47.8 Assessment & Plan Assessment & Plan (1) Migraine headache: Code(s): G43.909 - Migraine, unspecified, not intractable, without status migrainosus Category: Medical Qualifiers: Migraine type: migraine (< 15 days per month) with aura Status migrainosus presence: without status migrainosus Intractability: not intractable Qualified Code(s): G43.109 - Migraine with aura, not intractable, without status migrainosus Plan: Reviewed the importance of hydration, nutrition and adequate sleep. Continue Imitrex and ondansetron as needed. She has an appointment scheduled at the headache clinic. I am going to see if insurance will cover intranasal Imitrex since she is not able to keep it down due to vomiting with migraines. Patient aware not to use both oral and intranasal forms for the same episode. Trial of propranolol extended release 60 mg at bedtime for prophylaxis. Side effects reviewed. I encouraged her to speak with her dentist about a mouth guard due to report of grinding her teeth and clenching her jaw which may be triggering migraines in the morning. (2) Anxiety: Code(s): F41.9 - Anxiety disorder, unspecified Category: Medical Plan: Continue current medications. She is on a wait list for Psychiatry and seeing a therapist. (3) Depression: Code(s): F32.A - Depression, unspecified Category: Medical Qualifiers: Depression Type: major depressive disorder Major depression recurrence: recurrent Active/Remission status: currently active Major depression episode severity: moderate Qualified Code(s): F33.1 - Major depressive disorder, recurrent, moderate (4) Sleep dysfunction with arousal disturbance: Code(s): G47.8 - Other sleep disorders Category: Medical Plan: Sleep hygiene reviewed. Continue trazodone 50 mg at bedtime as needed. Plan Follow up in 1 month. Medications: New propranolol ER 60 mg PO BEDTIME 90 caps 0RF sumatriptan 20 mg/actuation administer into one nostril as a single dose; if 2nd dose needed, administer into other nostril after at least 2 hrs, Maximum dose: 40 mg per 24 hours 20 mg intranasal Q2H PRN 6 ea 3RF migraine headache Refilled trazodone 50 mg PO BEDTIME PRN 90 tabs 3RF sleep
[2025-06-23 15:26] VITALS: BP 116/68; PULSE 84; RESP 18; TEMP 36.6; O2SAT 98; BMI 27.2
== END 2025-06-23 15:55 | disposition home or self-care (01) ==
LOC: HO.HMCFM 15:15
PROVIDERS: PCP Physician Assistant Medical; Visit Provider Physician Assistant Medical
DX: G43.109 Migraine with aura, not intractable, without status migrainosus (principal); F41.9 Anxiety disorder, unspecified; F33.1 Major depressive disorder, recurrent, moderate; G47.8 Other sleep disorders

== ENCOUNTER → 2025-06-23 15:14 | Outpatient (BNVA) | payer OTHER, SELFPAY | PROVIDERS: PCP Physician Assistant Medical; Visit Provider Physician Assistant Medical | DX: G43.109 Migraine with aura, not intractable, without status migrainosus (principal); F41.9 Anxiety disorder, unspecified; F33.1 Major depressive disorder, recurrent, moderate; G47.8 Other sleep disorders | CPT/HCPCS: 99212 ==